=== PATIENT | female | born 1950 | race Caucasian/White ===

== ENCOUNTER 2019-03-30 13:00 | Outpatient (RCR) | payer MEDICARE, SELFPAY ==
[2019-03-30 12:52] VITALS: BMI 25.3
[2019-03-30 12:53] VITALS: BMI 25.3
== END 2019-06-05 23:59 | disposition home or self-care (01) ==
LOC: ANHDMC 13:00
PROVIDERS: Visit Provider Internal Medicine Endocrinology, Diabetes & Metabolism
DX: E11.65 Type 2 diabetes mellitus with hyperglycemia (principal); Z71.89 Other specified counseling; Z71.3 Dietary counseling and surveillance
CPT/HCPCS: 97803; G0108

== ENCOUNTER 2019-10-14 06:49 | Outpatient (NON) | payer MEDICARE, SELFPAY ==
[2019-10-14 18:01] LABS: SARS-CoV-2 RNA PCR Negative
== END 2019-10-14 06:50 ==
DX: Z20.828 Contact with and (suspected) exposure to other viral communicable diseases (principal); R68.89 Other general symptoms and signs
CPT/HCPCS: 87635; C9803; U0003

== ENCOUNTER 2020-10-14 12:00 | Outpatient (CLI) | payer MEDICARE, SELFPAY ==
--- NOTE | ~2020-10-14 | CT_ITS ---
EXAMINATION: CT abdomen pelvis wo con DATE: 10/14/2020 12:23 INDICATION: Pyelonephritis TECHNIQUE: Computed tomography (CT) of the abdomen and pelvis was performed without intravenous contr ast. The dose-length product was 447.39 mGy-cm. Automated exposure control and iterative reconstructi on technique were employed. COMPARISON: None. FINDINGS: Lung bases are unremarkable. Heart size normal. No significant pleural or pericardial effus ion. There are embolization coils in the splenic vessels. Calcified granuloma in the spleen. Status p ost cholecystectomy with pneumobilia. Small fat-containing umbilical hernia. The kidneys are within normal limits. No renal stones or hydro nephrosis. Bladder is unremarkable. Nonobstructive bowel gas pattern. Moderate colonic fecal loading. No free air or free fluid. There is atherosclerosis of the aorta without aneurysm. No lymphadenopath y. There is spinal fusion at L4-5 with grade 1 spondylolisthesis at this level. IMPRESSION: 1. No acute abdominal abnormality. Reviewed, dictated and finalized at location A.
--- NOTE | ~2020-10-14 | XR_ITS ---
XR abdomen/kub 1V 10/14/2020 12:27 Indication: Pyelonephritis. Procedure: KUB Comparison: No prior studies for comparison. Findings: Bowel gas pattern is nonobstructive. Moderate colonic fecal loading. There are cholecystect justin clips. There are are embolization coils in the left upper abdomen. There are surgical changes con sistent with fusion at L4-5. No renal stones are identified. There are pelvic phleboliths. Impression: 1: No acute abdominal abnormality. Reviewed, dictated and finalized at location A. Impression: 1: No acute abdominal abnormality.
== END 2020-10-14 12:01 | disposition home or self-care (01) ==
PROVIDERS: Visit Provider Nurse Practitioner Adult Health
DX: N10 Acute pyelonephritis (principal)
CPT/HCPCS: 74018; 74176

== ENCOUNTER 2023-02-27 13:06 | Emergency (ER) | payer MEDICARE, SELFPAY ==
[2023-02-27 13:41] VITALS: BP 134/88; PULSE 72; RESP 16; O2SAT 99
--- NOTE | 2023-02-27 14:40 | ED.EAR ---
HPI - Ear Problem General Chief complaint: Ear Stated complaint: dizzy,headache Time Seen by Provider: 02/27/23 14:40 Source: patient Mode of arrival: ambulatory Limitations: no limitations History of Present Illness HPI Narrative: 72-year-old female presents with complaint of dizziness for 4-5 days. Reports intermittent pressure, popping to bilateral ears. Reports nausea due to disease. No vomiting. Has been taking Zofran for nausea. No hearing changes. Patient reports recent runny nose postnasal drainage. Ran out of her Zyrtec 1 week ago and has not restarted it. All systems reviewed and negative except as noted above. Related Data Home Medications Medication Instructions Recorded Confirmed alpha lipoic acid 300 mg capsule 300 mg PO BID 02/27/23 02/27/23 buprenorphine 15 mcg/hour weekly See Rx Instructions .Route .COMPLEX 02/27/23 02/27/23 transdermal patch (Butrans) escitalopram oxalate 20 mg tablet 20 mg PO DAILY 02/27/23 02/27/23 insulin degludec 100 unit/mL (3 See Rx Instructions .Route .COMPLEX 02/27/23 02/27/23 mL) subcutaneous pen (Tresiba FlexTouch U-100 insulin) ketoconazole 2 % topical cream See Rx Instructions .Route .COMPLEX 02/27/23 02/27/23 lisinopril 10 mg tablet 10 mg PO DAILY 02/27/23 02/27/23 ondansetron HCl 4 mg tablet See Rx Instructions .Route .COMPLEX 02/27/23 02/27/23 oxycodone 5 mg tablet See Rx Instructions .Route .COMPLEX 02/27/23 02/27/23 pantoprazole 40 mg tablet,delayed 40 mg PO BID 02/27/23 02/27/23 release rosuvastatin 5 mg tablet 2.5 mg PO DAILY 02/27/23 02/27/23 solifenacin 10 mg tablet 10 mg PO DAILY 02/27/23 02/27/23 Allergies Allergy/AdvReac Type Severity Reaction Status Date / Time albuterol Allergy Unknown Other Verified 02/27/23 14:24 Review of Systems Review of Systems: CONSTITUTIONAL: Denies fever, chills, or sweats. EYES: Denies visual changes, redness, or discharge. ENT: Reports rhinorrhea, postnasal drainage, intermittent ear pressure and popping.. Denies congestion, sore throat, or otalgia. CARDIOVASCULAR: Denies chest pain, palpitations, or edema. RESPIRATORY: Denies cough or dyspnea. GASTROINTESTINAL: Denies abdominal pain, vomiting, or diarrhea. Reports nausea. GENITOURINARY: Denies dysuria or hematuria. SKIN: Denies rash or itching. MUSCULOSKELETAL: Denies back pain, joint pain, or myalgia. NEUROLOGIC: Denies headache, numbness, or weakness. Reports dizziness. PSYCHIATRIC: Denies anxiety or depression. All other systems reviewed are negative, except as documented in HPI. PMFSH Social History Social History Spiritual care concerns: No Comments At time of signature, agree with nursing past medical, surgical, social and family history. There is no relevant family history pertinent to the presenting complaint. Exam Narrative: GENERAL: This is a well-nourished, well-developed patient, in no apparent distress. HEAD: normocephalic, atraumatic. EYES: PERRL. Sclera clear/white. Vision is grossly intact. EARS: External ears normal, auditory canals clear and without drainage, fluid bilateral TMs with air bubbles. No erythema or perforation. Hearing grossly intact. NOSE: External nose normal with clear nasal drainage without significant erythema or swelling to nares. THROAT: Mucous membranes moist, clear postnasal drainage. NECK: Neck supple, non-tender without lymphadenopathy, masses or thyromegaly. CARDIOVASCULAR: Regular rate and rhythm without murmurs, gallops, or rubs. RESPIRATORY: Clear to auscultation. Breath sounds equal bilaterally. No wheezes, rales, or rhonchi. SKIN: warm, Dry, intact with no suspicious lesions or rash, good texture and turgor. NEURO: awake, alert, and oriented to person, place and time. There were no obvious focal neurologic abnormalities. EXTREMITIES: No joint tenderness, effusion, or edema noted. Course Course Level of Care: Express Care Visit Vital Signs Vital signs: Vital Signs Pulse Rate 72
== END 2023-02-27 14:57 | disposition home or self-care (01) ==
PROVIDERS: Emergency Provider Nurse Practitioner Family
DX: H65.03 Acute serous otitis media, bilateral (principal); R42 Dizziness and giddiness; J01.90 Acute sinusitis, unspecified
CPT/HCPCS: 99213; G0463